=== PATIENT | female | born 1955 | race Caucasian/White ===

== ENCOUNTER → 2023-04-05 09:47 | Outpatient (BNVA) | payer OTHER, SELFPAY | PROVIDERS: Visit Provider Podiatrist Foot & Ankle Surgery | DX: M79.671 Pain in right foot (principal); M79.673 Pain in unspecified foot; M20.5X1 Other deformities of toe(s) (acquired), right foot; M54.16 Radiculopathy, lumbar region | CPT/HCPCS: 73630; 99203 ==

== ENCOUNTER → 2023-05-14 10:17 | Outpatient (BNVA) | payer OTHER, SELFPAY | PROVIDERS: PCP Nurse Practitioner; Visit Provider Student in an Organized Health Care Education/Training Program | DX: M79.641 Pain in right hand (principal); M79.642 Pain in left hand; M19.041 Primary osteoarthritis, right hand; M19.042 Primary osteoarthritis, left hand | CPT/HCPCS: 73130 ==

== ENCOUNTER 2023-05-14 10:58 | Outpatient (CLI) | payer OTHER, SELFPAY | END 2023-05-14 10:59 | disposition home or self-care (01) | LOC: SPT 10:59 | PROVIDERS: PCP Nurse Practitioner; Visit Provider Student in an Organized Health Care Education/Training Program | DX: Z46.89 Encounter for fitting and adjustment of other specified devices (principal); M18.11 Unilateral primary osteoarthritis of first carpometacarpal joint, right hand | CPT/HCPCS: 97760; 99204; L3924 ==